=== PATIENT | male | born 1985 | race Caucasian/White ===

== ENCOUNTER 2021-10-23 16:39 | Emergency (ER) | payer OTHER ==
[~2021-10-23] VITALS: Ht 177.8 cm; Wt 108.9 kg
[2021-10-23 16:45] VITALS: BP 126/84
--- NOTE | 2021-10-23 16:59 | NUR ---
Patient discharged to home in stable condition. Written and verbal after care instructions given. Patient verbalizes understanding of instruction.
== END 2021-10-23 17:01 | disposition home or self-care (01) ==
LOC: ER 16:44
DX: M79.601 Pain in right arm (principal)